=== PATIENT | female | born 1940 | race Caucasian/White ===

== ENCOUNTER 2018-01-22 02:02 | Emergency (ER) | payer MEDICARE, SELFPAY ==
[2018-01-22 02:12] VITALS: BP 175/73; PULSE 51; RESP 14; TEMP 36.7; O2SAT 96; BMI 71.9
--- NOTE | 2018-01-22 02:18 | ED.LOWEXIN ---
HPI - Extremity Injury (Lower) General Chief Complaint: Extremity Injury, Lower Stated Complaint: WOUND ON RIGHT LEG WONT STOP BLEEDING Time Seen by Provider: 01/22/18 02:18 Source: patient and RN notes reviewed Mode of arrival: wheelchair Limitations: no limitations History of Present Illness HPI Narrative: Patient is a 77-year-old female who presents with right leg of bleeding. She has varicose veins and extremely superficial veins. She scratched her leg and started bleeding. His was bleeding quite a bit. Her put a pressure dressing on it and they came immediately here. The bleeding has now stopped. She has no numbness or tingling. Onset (ago): hour(s) Related Data Home Medications Medication Instructions Recorded Confirmed losartan 25 mg OR BID #0 06/13/16 metformin [Glucophage XR] 750 mg OR BID #0 06/13/16 metoprolol succinate 100 mg OR BID #0 06/13/16 omeprazole magnesium [Prilosec OTC] #0 06/13/16 rosuvastatin [Crestor] 10 mg OR QDAY #0 06/13/16 sertraline 50 mg OR BID #0 06/13/16 Allergies Allergy/AdvReac Type Severity Reaction Status Date / Time amoxicillin [AMOXICILLIN] Allergy Severe Rash Verified 01/22/18 02:20 lactose [LACTOSE] AdvReac Severe Vomiting Verified 01/22/18 02:20 Sulfa (Sulfonamide AdvReac Intermediate Rash Verified 01/22/18 02:20 Antibiotics) [SULFA (SULFONAMIDE ANTIBIOTICS)] Review of Systems Review of Systems GENERAL: Denies chills,fever HEENT: Denies throat pain RESPIRATORY: Denies dyspnea, cough, wheezing CARDIOVASCULAR: Denies chest pain, palpitations GASTROINTESTINAL: Denies nausea, vomiting MUSCULOSKELETAL: Denies extremity pain, injury SKIN: See HPI NEUROLOGIC: Denies weakness, dizziness, headache, numbness 8 point review of systems is negative except for those stated above and HPI [facility] Social History Smoking Status: Never smoker Exam Narrative Exam Narrative: GENERAL: Well-appearing, well-nourished and in no acute distress. CARDIOVASCULAR: peripheral pulses in tact, cap refill <2 sec RESPIRATORY: No respiratory distress, speaks in full sentences without difficulty EXTREMITIES: Normal range of motion, no clubbing or edema. Neurovascularly intact NEUROLOGICAL: Cranial nerves II through XII grossly intact. Normal gait and speech. SKIN: Very small superficial area where the bleeding was occurring has now stopped. Course Last Vital Signs Temp 98.0 F 01/22/18 02:12 Pulse 51 L 01/22/18 02:12 Resp 14 01/22/18 02:12 BP 175/73 H 01/22/18 02:12 Pulse Ox 96 01/22/18 02:12 Discharge Plan Departure Patient Disposition: Home, Self-Care Clinical Impression: Varicose veins of right lower extremity Discharge Date/Time: 01/22/18 02:45 Interventions: ED Discharge Assessment Last Done: 01/22/18 02:45 Instructions: Varicose Veins Activity Restrictions/Additional Instructions: *You have been diagnosed with varicose vein *What to do: Keep dressing on until morning may need to keep it covered for the next couple of days *Take medications as directed *Follow up with your primary care provider in 2-3 days *Return to ER if you should have any new, worsening or concerning symptoms Prescriptions: No Action metoprolol succinate 100 MG tablet extended release 24 hr 100 mg OR BID Qty: 0 RF: 0 losartan 25 MG tablet 25 mg OR BID Qty: 0 RF: 0 sertraline 50 MG tablet 50 mg OR BID Qty: 0 RF: 0 rosuvastatin [Crestor] 10 MG tablet 10 mg OR QDAY Qty: 0 RF: 0 metformin [Glucophage XR] 750 MG tablet extended release 24 hr 750 mg OR BID Qty: 0 RF: 0 omeprazole magnesium [Prilosec OTC] 20 mg Tablet,Delayed Release (Dr/Ec) Qty: 0 RF: 0
== END 2018-01-22 02:45 | disposition home or self-care (01) ==
PROVIDERS: Emergency Provider Emergency Medicine; PCP Physician Assistant
DX: I83.91 Asymptomatic varicose veins of right lower extremity (principal)
CPT/HCPCS: 99282

== ENCOUNTER → 2018-07-23 13:05 | Outpatient (CLI) | payer MEDICARE, SELFPAY | PROVIDERS: PCP Physician Assistant; Visit Provider Physician Assistant | DX: Z78.0 Asymptomatic menopausal state (principal); R29.890 Loss of height | CPT/HCPCS: 77080 ==

== ENCOUNTER → 2019-07-20 10:00 | Outpatient (CLI) | payer MEDICARE, SELFPAY ==
[2019-07-20 10:36] LABS: BUN Creatinine Ratio 34.3 (6-22); Blood Urea Nitrogen 24 mg/dL (7-17); Estimated Glomerular Filt Rate > 60.0 mL/min (>60)
--- NOTE | 2019-07-20 11:13 | DI.CT.S_ITS ---
PROCEDURE: CT ABDOMEN PELVIS W CON INDICATIONS: Right upper quadrant pain TECHNIQUE: After the administration of oral and intravenous contrast, 5 mm thick sections acquired from the diaphragms to the symphysis. 5 mm thick coronal and sagittal reformats were performed. For radiation dose reduction, the following was used: automated exposure control, adjustment of mA and/or kV according to patient size. COMPARISON: [facility], [place], PELVIC COMPLETE, 08/17/2017, 8:12. [facility], [place], ABDOMEN COMPLETE, 08/17/2017, 7:55. [facility], CT, PELVIS WITHOUT CONTRAST, 05/09/2015, 12:13. [facility], CR, PELVIS WITH BILATERAL HIPS, 04/20/2015, 11:16. FINDINGS: Image quality: Excellent. ABDOMEN: Lung bases: Lung bases are clear. Heart size is normal. Solid organs: Liver is normal in size and enhancement. Gallbladder demonstrates a small phrygian cap but no pericholecystic inflammatory findings or cholelithiasis is identified. Biliary system is non-dilated. Pancreas enhances normally. There is an approximately 1.0 cm hypoattenuating cyst or hemangioma within the posterior medial aspect of the spleen. Spleen is otherwise normal in size and enhancement. No adrenal nodules. Kidneys are normal in size and enhancement, without hydronephrosis. Peritoneum, mesentery, retroperitoneum, and bowel: There is a large hiatal hernia with mesentero-axila rotation of the stomach within the hernia sac. The gastroesophageal junction projects below the level of the herniated gastric fundus and superior gastric body, but the gastric antrum remains within the stomach. There is a small volume of free fluid adjacent gastroesophageal junction within the hernia sac. There is no CT evidence of bowel obstruction at this time, however. No retroperitoneal or mesenteric adenopathy. Aorta and inferior vena cava are normal in caliber. There is severe calcified and noncalcified plaque of the abdominal aorta and branch vessels. Normal appendix best seen on axial image 51 of series 2. There is sigmoid colon diverticulosis without evidence of acute diverticulitis. Miscellaneous: There is a small 1.0 cm fat containing umbilical hernia. PELVIS: Genitourinary: Bladder wall thickness is normal. Miscellaneous: No inguinal hernias or adenopathy. Uterus is present. There are dense calcifications within the right anterolateral uterine wall near in the right adnexa, suggestive of calcified fibroids. Bones: Moderate multilevel degenerative changes of the thoracolumbar spine. IMPRESSION: 1. 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 A small amount of free fluid is identified adjacent the gastroesophageal junction within the hiatal hernia, concerning for acute inflammation and potential developing gastric volvulus. Recommend surgical consult for further evaluation. 2. Colonic diverticulosis without evidence of acute diverticulitis. 3. Severe calcified and noncalcified plaque of the abdominal aorta and branch vessels. Findings discussed with provider MK Trevizo, provider covering for referring provider Dr. Bethany Aguila, at approximately 3:10 PM on 07/20/[address] Hogan. Dictated by: Armando Hogan M.D. on 07/20/2019 at 14:36 Approved by: Armando Hogan M.D. on 07/20/2019 at 15:13
== END ==
PROVIDERS: PCP Physician Assistant; Visit Provider Internal Medicine
DX: R10.11 Right upper quadrant pain (principal); K57.30 Diverticulosis of large intestine without perforation or abscess without bleeding; K31.89 Other diseases of stomach and duodenum; I70.0 Atherosclerosis of aorta; K44.9 Diaphragmatic hernia without obstruction or gangrene
CPT/HCPCS: 36415; 74177; 82565; 84520; Q9967

== ENCOUNTER → 2019-07-29 09:53 | Outpatient (CLI) | payer MEDICARE, SELFPAY ==
--- NOTE | 2019-07-29 09:55 | DI.RAD.S_ITS ---
PROCEDURE: FL BARIUM SWALLOW INDICATIONS: large hiatal hernia. Define anatomy. examine motility COMPARISON: None. FINDINGS: Function: There is grossly normal esophageal peristalsis. No elicited gastroesophageal reflux. There is normal transit of a calibrated barium tablet through the esophagus into the stomach. Morphology: Air-contrast images demonstrate normal mucosal morphology. Single contrast views show no esophageal strictures, extrinsic mass effects, or diverticula. Moderate hiatal hernia. IMPRESSION: Moderate hiatal hernia Dictated by: Ricardo Ryan M.D. on 07/29/2019 at 11:29 Approved by: Ricardo Ryan M.D. on 07/29/2019 at 11:31
== END ==
PROVIDERS: PCP Internal Medicine; Visit Provider Specialist
DX: K44.9 Diaphragmatic hernia without obstruction or gangrene (principal); K31.89 Other diseases of stomach and duodenum
CPT/HCPCS: 74220

== ENCOUNTER 2019-08-10 06:31 | Day surgery (SDC) | payer MEDICARE, SELFPAY ==
[2019-08-10] VITALS (11 sets, daily range): BP systolic 80–166; BP diastolic 38–78; PULSE 57–86; RESP 7–16; TEMP 36.2–36.8; O2SAT 95–98; BMI 31.4
--- NOTE | 2019-08-10 | PATH_ITS ---
[facility] Accession Number: [id number] . 01 Material submitted: . duodenum - DUODENAL NODULE . 02 Diagnosis: Duodenal Nodule, Biopsy: Gastric heterotopia. Negative for active inflammation, features of sprue, dysplasia or malignancy. MRV 08/12/2019 1454 Local . 02 Electronically signed: . Cristino Smith MD, PhD, Pathologist NPI- [id number] . 01 Gross description: . DUODENAL NODULE: Received in formalin is 1 fragment(s) of valenzuela, soft tissue measuring 0.2 x 0.2 x 0.1 cm submitted entirely in 1 cassette(s) /QBJ 08/11/2019 0033 Local . 02 Pathologist provided ICD-10: K31.7 . 02 CPT . 725520 Performed at: 01 [facility] [address] [id number] MD Tejas Hightower MD Phone: [phone] Performed at: 02 [facility] [address] [address] [place], [place] [id number] MD Prema Desai MD Phone: [phone]
[2019-08-10] MEDS: fentaNYL 250 MCG/5 ML INJ IV (07:51)
[2019-08-10] MEDS: MIDAZOLAM 5 MG/5 ML VIAL IV (07:52)
[2019-08-10] MEDS: LIDOCAINE 4% SOLN 50 ML 20 ML TOP (07:53)
--- NOTE | 2019-08-10 07:58 | PM.PREOP ---
Pre-operative Note Interval Note History & Physical reviewed/Exam performed by Physician: Yes Changes to H&P: No ASA Class (for procedural sedation): III
[2019-08-10] MEDS: SODIUM CHLORIDE 0.9% 1,000 ML 84 ML IV (07:59)
--- NOTE | 2019-08-10 08:14 | SUR.OPER ---
GLASSES TO PACU IN LABELED CONTAINER
--- NOTE | 2019-08-10 08:16 | PM.OP.ENDO ---
Operative Date/Time/Diagnoses Date of procedure: 08/10/19 Time of procedure: 08:16 Pre-op diagnosis: Anemia Post-op diagnosis: same (Hiatal hernia. Small nodule in the duodenum) Procedure & Clinicians Study performed: EGD with cold biopsy Same procedure as scheduled: Yes Indications: Anemia Surgeon: Michael Bingham Procedure Notes SCOAP/Timeout: Performed Procedure in detail: The patient had topical anesthetic applied to oropharynx. She was placed in left lateral decubitus position and underwent IV sedation directed by the surgeon consisting of fentanyl and Versed. A bite block was inserted and the scope was advanced through it into the esophagus. The esophagus was unremarkable. GE junction was noted at 36 cm. There was mild narrowing here but not enough to dilate and the patient was having no symptoms. I dropped into an obvious hiatal hernia. The stomach insufflated well. There were no lesions seen in the body, antrum or at the incisura. The pyloric channel was patent though it appeared a little swollen. There was a small nodule just inside the pylorus and the duodenal bulb which was biopsied on the way out. The duodenum was otherwise unremarkable to the 4th part. The scope was brought back into the stomach and retroflexed. The proximal stomach was remarkable for large hiatal hernia. I could see no inflammation or ulcers.. The scope was straightened and brought out through the esophagus again. The hiatal hernia at the time of scope measured 3 cm in length. No lesions were seen. The scope was removed and the patient tolerated the procedure well. There was no evidence on this exam of a paraesophageal hernia. Scope withdrawal time: Not applicable Sedation minutes: 7 Findings: hiatal hernia Specimen(s): other (Small duodenal bulb nodule) Complications: none Post-procedure Plan for aftercare: Will review studies with her in the office Follow up: weeks (2) Disposition: PACU
== END 2019-08-10 09:38 | disposition home or self-care (01) ==
PROVIDERS: PCP Internal Medicine; Visit Provider Specialist
PROC: 0DJ08ZZ Inspection of Upper Intestinal Tract, Via Natural or Artificial Opening Endoscopic (ICD-10-PCS; CPT 43235; principal; 2019-08-10 07:45)
DX: K31.7 Polyp of stomach and duodenum (principal); D64.9 Anemia, unspecified; K44.9 Diaphragmatic hernia without obstruction or gangrene; H50.40 Unspecified heterotropia
CPT/HCPCS: 43239; 99152; J2250; J3010

== ENCOUNTER 2019-08-20 19:54 | Emergency (ER) | payer MEDICARE, SELFPAY ==
[2019-08-20 20:00] VITALS: BP 161/71; PULSE 80; RESP 18; O2SAT 98
[2019-08-20 20:12] VITALS: BP 149/64; BP 159/85; BP 167/61; PULSE 90; PULSE 92; PULSE 94
[2019-08-20 20:13] VITALS: BP 167/60; PULSE 93; RESP 20; O2SAT 100
--- NOTE | 2019-08-20 20:49 | PC.NURSE ---
Pt states that she believes her blood pressure cuff is to big and will give 'wrong' bp. Discussed size of cuff, had tried regular size (pt is on the line between regular size cuff and large cuff) and pt would not let us use regular size cuff. She states she does not want her health care determined by the numbers we are getting. Discussed trends and how blood pressures change according to need. Pt anxious for MD evaluation, updated on wait as critical patients in Ed.
[2019-08-20 21:06] LABS: INR 1.1 (0.9-1.3); Prothrombin Time 12.2 SECONDS (10.1-12.7)
--- NOTE | 2019-08-20 21:07 | DI.RAD.S_ITS ---
PROCEDURE: XR CHEST 1V INDICATIONS: lightheadedness, low blood pressure TECHNIQUE: One view of the chest was acquired. COMPARISON: None. FINDINGS: Surgical changes and devices: None. Lungs and pleura: Lungs are clear. No pleural effusions or pneumothorax. Mediastinum: Mediastinal contours appear normal. Heart size is normal. Bones and chest wall: No suspicious bony lesions. Overlying soft tissues appear unremarkable. IMPRESSION: No acute cardiopulmonary disease. Dictated by: Daniel Bhat M.D. on 08/20/2019 at 21:54 Approved by: Daniel Bhat M.D. on 08/20/2019 at 21:54
[2019-08-20 21:09] LABS: PTT Partial Thromboplastin Tim 27 SECONDS (26.4-36.2)
[2019-08-20 21:11] LABS: Alanine Aminotransferase 17 IU/L (<35); Albumin 4.2 g/dL (3.5-5.0); Albumin Globulin Ratio 1.4 (1.0-2.8); Alkaline Phosphatase 69 U/L (38-126); Aspartate Aminotransferase 25 IU/L (14-36); Bilirubin Total 0.5 mg/dL (0.2-1.3); Blood Urea Nitrogen 36 mg/dL (7-17); Carbon Dioxide 27 mmol/L (22-32); Chloride 102 mmol/L (98-107); Creatine Kinase 30 U/L (30-135); Estimated Glomerular Filt Rate 53.6 mL/min (>60); Glucose 101 mg/dL (80-110); HEMOLYSIS < 15 (0-50); Lipase 58 U/L (23-300); Sodium 137 mmol/L (137-145); Total Protein 7.2 g/dL (6.3-8.2)
--- NOTE | 2019-08-20 21:11 | ED.RECABL ---
HPI - Recheck/Abnormal Lab/Rx General Chief Complaint: Recheck/Abnormal Lab/Rx Stated Complaint: lightheadedness, low blood pressure Time Seen by Provider: 08/20/19 21:07 Source: patient Mode of arrival: Ambulatory Limitations: no limitations History of Present Illness HPI narrative: A 78-year-old female comes to the emergency department with complaint of lightheadedness. Patient states that she felt lightheaded several times while standing up today is always when she went from a sitting to standing position. It was not every single time. She would checked her blood pressure with her cough and states that it went occasionally low. But not always. She states that she is having symptoms currently. She denies any syncope. No chest pain, no shortness of breath, no diaphoresis, no GERD, no nausea vomiting. Patient a little bit of loose stools this evening but states she had better tonight and she is lactose intolerant. Patient states her stools have been dark, she has denied any swelling. She is postop hiatal hernia repair based on possibly some bleeding around the area of the hernia but states that this has never been in [place]. Any he takes nothing for diabetes, hypertension, dyslipidemia and migraines. Primary care is Dr. Aguila. Related Data Home Medications Medication Instructions Recorded Confirmed losartan 25 mg PO BID #0 06/13/16 08/10/19 metformin [Glucophage XR] 750 mg PO DAILY #0 06/13/16 08/10/19 metoprolol succinate 50 mg PO BID #0 06/13/16 08/10/19 rosuvastatin [Crestor] 10 mg PO QDAY #0 06/13/16 08/10/19 sertraline 50 mg PO BID #0 06/13/16 08/10/19 pantoprazole 20 mg PO DAILY 08/10/19 08/10/19 Allergies Allergy/AdvReac Type Severity Reaction Status Date / Time amoxicillin [AMOXICILLIN] Allergy Severe Rash Verified 08/10/19 07:07 lactose [LACTOSE] AdvReac Severe Vomiting Verified 08/10/19 07:07 Sulfa (Sulfonamide AdvReac Intermediate Rash Verified 08/10/19 07:07 Antibiotics) [SULFA (SULFONAMIDE ANTIBIOTICS)] Review of Systems Review of Systems ROS Unobtainable: All systems reviewed & are unremarkable except as noted in HPI and below Patient History Medical History Egg allergy (Acute) Prediabetes (Acute) Surgical History Hx of cataract surgery (Acute) Family History Mother Hypertension Heart disease Stroke Sister Diabetes mellitus Social History marital status: household members: spouse occupational status: previously employed Smoking Status: Never smoker alcohol intake: never substance use type: does not use Smoking Status: Never smoker alcohol intake frequency: 0-2 drinks per day Substance Use Type: does not use Exam Narrative Exam Narrative: GEN: well nourished, well appearing female, alert and oriented x 3, patient appears to be in no acute distress. HEENT: Atraumatic, pupils are equal round reactive to light, extraocular movements are intact, nares are clear, TMs are clear with no fluid, there is no conjunctival pallor. Throat is clear without any exudates, erythema, tonsillar enlargement or uvular deviation HEART: Regular rate and rhythm without murmur, clicks, rubs. Pulses are equal in upper and lower extremities LUNGS:Lungs clear to auscultation, no wheezes, rales, crackles, chest moves symmetrically ABD:bowel sounds normal, soft, non-tender, no guarding, rebound, rigidity, no masses noted, no hepatosplenomegaly, stool occult is positive. No mass. No hemorrhoids noted. :No CVA tenderness. MSCL: Non-tender, no muscle atrophy, muscles strength 5/5 upper and lower extremities, full range of motion, normal gait NEURO:CN 2-12 intact, sensation normal. SKIN: No rash, no petechiae. Initial Vital Signs Initial Vital Signs: Vital Signs Pulse Rate 80 08/20/19 20:00 Respiratory Rate 18 08/20/19 20:00 Blood Pressure 161/71 H 08/20/19 20:00 Pulse Oximetry 98 08/20/19 20:00 Course Orders Ordered: ED Orders 08/20/19 20:50 Complete Blood Count AUTO DIFF Stat Comprehensive Metabolic Panel Stat Lipase Stat Partial Thromboplastin Time Stat Prothrombin Time INR Stat Troponin & CK Cardiac Panel Stat 08/20/19 21:07 XR chest 1V Stat Vital Signs Vital signs: Vital Signs - 8 hr 08/20/19 22:00 08/20/19 22:57 Pulse Rate 77 89 Respiratory Rate 18 16 Blood Pressure [Left Arm] 171/61 H 162/88 H Pulse Oximetry 99 99 MDM - Recheck/Abnormal Lab/Rx Lab Data Attestation: I reviewed the patient's lab results. Result diagrams: 08/20/19 20:50 08/20/19 20:50 Labs: Lab Results 08/20/19 08/20/19 08/20/19 Range/Units 20:50 20:50 20:50 WBC 8.6 (4.5-11.0) X10^3/uL RBC 3.68 L (4.0-5.2) X10^6/uL Hgb 12.0 (12.0-16.0) g/dL Hct 35.1 L (36-46) % MCV 95.5 (80-100) fL MCH 32.7 (26-34) PG MCHC 34.3 (30-36) % RDW 12.2 (11.6-14.8) % Plt Count 273 (150-400) X10^3/uL Neut % (Auto) 59.1 (50-75) % Lymph % (Auto) 28.7 (25-40) % [place] % (Auto) 9.7 (3-14) % Eos % (Auto) 1.9 L (2-4) % Baso % (Auto) 0.6 (0-2) % Neut # (Auto) 5100 (5030-6104) /uL Lymph # (Auto) 2500 (8138-3054) /uL [place] # (Auto) 800 (0-900) /uL Eos # (Auto) 200 (0-450) /uL Baso # (Auto) 100 (0-100) /uL PT 12.2 (10.1-12.7) SECONDS INR 1.1 (0.9-1.3) APTT 27 (26.4-36.2) SECONDS Sodium 137 (137-145) mmol/L Potassium 4.0 (3.4-5.1) mmol/L Chloride 102 (98-107) mmol/L Carbon Dioxide 27 (22-32) mmol/L BUN 36 H (7-17) mg/dL Creatinine 1.00 (0.52-1.04) mg/dL Estimated GFR 53.6 L (>60) mL/min BUN/Creatinine Ratio 36.0 H (6-22) Glucose 101 (80-110) mg/dL Calcium 9.0 (8.4-10.2) mg/dL Total Bilirubin 0.5 (0.2-1.3) mg/dL AST 25 (14-36) IU/L ALT 17 (<35) IU/L Alkaline Phosphatase 69 (38-126) U/L Total Creatine Kinase 30 (30-135) U/L CK-MB (CK-2) TNP CK-MB (CK-2) Rel Index TNP Troponin I < 0.012 (0.01-0.034) ng/mL Total Protein 7.2 (6.3-8.2) g/dL Albumin 4.2 (3.5-5.0) g/dL Globulin 3.0 (1.7-4.1) g/dL Albumin/Globulin Ratio 1.4 (1.0-2.8) Lipase 58 (23-300) U/L Imaging Data Chest x-ray: Radiologist's impression: Laotnia Chanel 78 [address] [place] [address] XRay Report Signed Patient: Latoina Chanel BMR#: [id number] : [id number]:[id number] Age/Sex: 78 / FDate of Service: 08/20/19 Loc: ED Accession Number: [id number] Procedure: XR chest 1V Ordering Provider: Bonnie Hagan D.O. PROCEDURE: XR CHEST 1V INDICATIONS: lightheadedness, low blood pressure TECHNIQUE: One view of the chest was acquired. COMPARISON: None. FINDINGS: Surgical changes and devices: None. Lungs and pleura: Lungs are clear. No pleural effusions or pneumothorax. Mediastinum: Mediastinal contours appear normal. Heart size is normal. Bones and chest wall: No suspicious bony lesions. Overlying soft tissues appear unremarkable. IMPRESSION: No acute cardiopulmonary disease. Dictated by: Daniel Bhat M.D. on 08/20/2019 at 21:54 Approved by: Daniel Bhat M.D. on 08/20/2019 at 21:54 ECG Data Attestation: I personally reviewed and interpreted this ECG as follows: Interpretation: Sinus rhythm rate 89 P are 177 QRS is 74 and QTC of 418. No move ST elevation depression appreciated. MDM Narrative Medical decision making narrative: Discussed with patient she comes in with complaint of hypotension which always occurred when she stood up he from a seated position. But not every time and she did occasionally have dizziness but not every time. Patient does have a history of hiatal hernia with a possible ulcer and is scheduled to have surgery with Dr. Bingham later this month. Patient is not currently on any aspirin she is taking a pantoprazole extended release. Hemoglobin appears stable. The department she has no episodes of hypotension and orthostatics are negative. BUN is elevated at 36, troponin is negative with otherwise normal labs, chest x-ray is negative with negative EKG. Discussed with patient she feels comfortable returning home I do suspect she has a GI bleed she states she has chronically been on iron for a long period of time and always is low normal with her hemoglobin. I asked her to call Thursday to speak with Dr. Bingham's office to see if they would like to see her sooner or even possibly have colonoscopy/EGD based on her issues. Patient feels comfortable as plan and we discussed reasons to return. Discharge Plan Departure Patient Disposition: Home Clinical Impression: Dizziness Discharge Date/Time: 08/20/19 23:03 Instructions: DI for Dizziness-Nonvertigo Activity Restrictions/Additional Instructions: Follow up with Dr. Bingham this week regarding your positive Hemoccult. See if during discussion if they can move your surgery up sooner. Continue your pantoprazole take 40 mg daily. Return to the emergency department for recurrent symptoms, worsening dizziness, passing out, any chest pain, shortness of breath, abdominal pain, worsening black or bloody stools, or other new or concerning symptoms. Prescriptions: No Action metoprolol succinate 100 MG tablet extended release 24 hr 50 mg PO BID Qty: 0 RF: 0 losartan 25 MG tablet 25 mg PO BID Qty: 0 RF: 0 sertraline 50 MG tablet 50 mg PO BID Qty: 0 RF: 0 rosuvastatin [Crestor] 10 MG tablet 10 mg PO QDAY Qty: 0 RF: 0 metformin [Glucophage XR] 750 MG tablet extended release 24 hr 750 mg PO DAILY Qty: 0 RF: 0 pantoprazole 20 mg tablet,delayed release (DR/EC) 20 mg PO DAILY RF: 0 Referrals: Bethany Aguila MD [Primary Care Provider] -
[2019-08-20 21:12] LABS: Add Manual Diff / Slide Review NO; Basophils Absolute Auto 100 /uL (0-100); Basophils Percent Auto 0.6 % (0-2); Eosinophils Absolute Auto 200 /uL (0-450); Eosinophils Percent Auto 1.9 % (2-4); Hematocrit 35.1 % (36-46); Lymphocytes Absolute Auto 2500 /uL (1100-4500); Lymphocytes Percent Auto 28.7 % (25-40); Mean Corpuscular HGB Conc 34.3 % (30-36); Mean Corpuscular Hemoglobin 32.7 PG (26-34); Mean Corpuscular Volume 95.5 fL (80-100); Monocytes Absolute Auto 800 /uL (0-900); Monocytes Percent Auto 9.7 % (3-14); Neutrophils Absolute Auto 5100 /uL (1500-7000); Neutrophils Percent Auto 59.1 % (50-75); Platelet Count 273 X10^3/uL (150-400); Red Blood Cell Count 3.68 X10^6/uL (4.0-5.2); Red Cell Distribution Width 12.2 % (11.6-14.8); White Blood Cell Count 8.6 X10^3/uL (4.5-11.0)
[2019-08-20 21:19] VITALS: BP 150/59; PULSE 83; RESP 22; O2SAT 100
[2019-08-20 21:23] LABS: Troponin I < 0.012 ng/mL (0.01-0.034)
[2019-08-20 22:00] VITALS: BP 171/61; PULSE 77; RESP 18; O2SAT 99
[2019-08-20 22:57] VITALS: BP 162/88; PULSE 89; RESP 16; O2SAT 99
== END 2019-08-20 23:03 | disposition home or self-care (01) ==
PROVIDERS: Emergency Provider Emergency Medicine; PCP Internal Medicine
DX: R42 Dizziness and giddiness (principal); I95.9 Hypotension, unspecified; R79.89 Other specified abnormal findings of blood chemistry
CPT/HCPCS: 36415; 71045; 80053; 82550; 83690; 84484; 85025; 85610; 85730; 93005; 99283; 99285

== ENCOUNTER → 2019-10-04 12:26 | Outpatient (ROUT) | payer OTHER, SELFPAY ==
[2019-10-04 12:38] LABS: Add Manual Diff / Slide Review NO; Basophils Absolute Auto 0 /uL (0-100); Basophils Percent Auto 0.7 % (0-2); Eosinophils Absolute Auto 400 /uL (0-450); Eosinophils Percent Auto 6.3 % (2-4); Hemoglobin 13.5 g/dL (12.0-16.0); Lymphocytes Absolute Auto 1800 /uL (1100-4500); Lymphocytes Percent Auto 26.6 % (25-40); Mean Corpuscular HGB Conc 34.5 % (30-36); Mean Corpuscular Hemoglobin 33.2 PG (26-34); Mean Corpuscular Volume 96.1 fL (80-100); Monocytes Absolute Auto 600 /uL (0-900); Monocytes Percent Auto 9.2 % (3-14); Neutrophils Absolute Auto 3900 /uL (1500-7000); Neutrophils Percent Auto 57.2 % (50-75); Platelet Count 284 X10^3/uL (150-400); Red Blood Cell Count 4.06 X10^6/uL (4.0-5.2); Red Cell Distribution Width 13.1 % (11.6-14.8); White Blood Cell Count 6.9 X10^3/uL (4.5-11.0)
[2019-10-04 12:52] LABS: Alanine Aminotransferase 15 IU/L (<35); Albumin 4.1 g/dL (3.5-5.0); Albumin Globulin Ratio 1.3 (1.0-2.8); Alkaline Phosphatase 75 U/L (38-126); Aspartate Aminotransferase 26 IU/L (14-36); BUN Creatinine Ratio 33.3 (6-22); Bilirubin Total 0.5 mg/dL (0.2-1.3); Blood Urea Nitrogen 20 mg/dL (7-17); Calcium 9.2 mg/dL (8.4-10.2); Carbon Dioxide 28 mmol/L (22-32); Chloride 104 mmol/L (98-107); Cholesterol 154 mg/dL (140-199); Estimated Glomerular Filt Rate > 60.0 mL/min (>60); Globulin 3.1 g/dL (1.7-4.1); Glucose 116 mg/dL (80-110); HDL Cholesterol 51 mg/dL (40-60); HEMOLYSIS < 15 (0-50); LDL Cholesterol Calculated 74 mg/dL (<100); Potassium 4.2 mmol/L (3.4-5.1); Sodium 140 mmol/L (137-145); Total Protein 7.2 g/dL (6.3-8.2); Triglycerides 144 mg/dL (35-150)
[2019-10-04 12:53] LABS: Hemoglobin A1C% w Est Avg Glu 5.4 % (4.0-6.0)
[2019-10-04 12:56] LABS: High Sensitivity CRP - Cardiac 0.8 mg/L (1.0-3.0)
[2019-10-04 13:22] LABS: TSH w/ Reflex to FT4 2.06 uIU/mL (0.47-4.68)
[2019-10-04 14:50] LABS: Creatinine Urine Random 157.4 mg/dL
[2019-10-04 14:52] LABS: Microalbumi Creatinin Ratio Ur 9.5 ug/mg CR (<30); Microalbumin Urine Random 1.5 mg/dL (0-1.6)
[2019-10-06 15:06] LABS: Insulin Level Total 10.2 uIU/mL (2.0-19.6)
== END ==
PROVIDERS: PCP Internal Medicine; Visit Provider Internal Medicine
DX: E11.9 Type 2 diabetes mellitus without complications (principal); I10 Essential (primary) hypertension; E78.2 Mixed hyperlipidemia; R53.83 Other fatigue; R07.9 Chest pain, unspecified; Z82.49 Family history of ischemic heart disease and other diseases of the circulatory system
CPT/HCPCS: 80053; 80061; 82043; 82570; 83036; 83525; 84443; 85025; 86140

== ENCOUNTER → 2019-10-21 08:27 | Outpatient (CLI) | payer MEDICARE, SELFPAY ==
[2019-10-21] MEDS: METOPROLOL IR 25 MG TABLET 50 MG PO (09:30)
--- NOTE | 2019-10-24 18:39 | DI.NM.S_ITS ---
DATE OF SERVICE: 10/21/2019 PROCEDURE: Pharmacological perfusion study. INDICATION: Near syncope, lightheadedness, underlying diabetes mellitus, hypertension, hyperlipidemia. RADIOPHARMACEUTICAL: 24.9 millicurie technetium-99m Myoview IV was injected at stress and 24.8 millicurie technetium-99m Myoview IV was injected at rest. FINDINGS: CARDIAC STRESS:: The patient underwent intravenous Lexiscan perfusion study under the supervision of an attending staff using standard IV Lexiscan protocol. Baseline blood pressure 148/80. During Lexiscan infusion, she became hypertensive. Her blood pressure went up to 280/80, which lasted about 10 minutes. The patient was given metoprolol tartrate 50 mg. Then, blood pressure came down to 180/76. No chest pain or nausea. Heart rate remained stable. Rhythm was sinus. No convincing ischemic changes. Occasional PVCs were seen. RAW DATA:: Breast shadow was seen. GATED STUDY:: Stress LV ejection fraction 89 percent and resting LV ejection fraction 87 percent. No obvious wall motion abnormalities. Resting end- diastolic volume 75 mL. Lung-heart ratio 0.32, which is within normal limits. No transient ischemic dilatation. TID ratio 1.13, which is within normal limits. MYOCARDIAL PERFUSION:: There was normal myocardial perfusion. CONCLUSIONS: 1. Normal myocardial perfusion. 2. Hypertensive blood pressure response to Lexiscan. No significant arrhythmias. No chest pain. 3. As far as perfusion scan is concerned, this is a low risk myocardial perfusion scan. 4. Consider optimization of blood pressure management. Latonia Chanel - Reilly/sabi doc#: [id number]/job#: [id number] dd: 10/24/2019 17:11:00 dt: 10/24/2019 18:25:00 DICTATING MD/COPIES TO: Yennifer Buchanan MD COPIES MNE: FREDY;
== END ==
PROVIDERS: PCP Internal Medicine; Referring Provider Internal Medicine; Visit Provider Internal Medicine
DX: R07.9 Chest pain, unspecified (principal); R55 Syncope and collapse; R42 Dizziness and giddiness; R53.83 Other fatigue; E11.9 Type 2 diabetes mellitus without complications; I10 Essential (primary) hypertension; E78.5 Hyperlipidemia, unspecified; Z82.49 Family history of ischemic heart disease and other diseases of the circulatory system
CPT/HCPCS: 78452; 93017; A9502; J2785

== ENCOUNTER → 2020-02-24 10:13 | Outpatient (CLI) | payer MEDICARE, SELFPAY ==
[2020-02-24 11:57] LABS: Hemoglobin A1C% w Est Avg Glu 5.8 % (4.0-6.0)
[2020-02-24 11:59] LABS: Add Manual Diff / Slide Review NO; Basophils Absolute Auto 0 /uL (0-100); Basophils Percent Auto 0.4 % (0-2); Eosinophils Absolute Auto 300 /uL (0-450); Eosinophils Percent Auto 3.8 % (2-4); Hematocrit 37.7 % (36-46); Lymphocytes Absolute Auto 1700 /uL (1100-4500); Lymphocytes Percent Auto 22.1 % (25-40); Mean Corpuscular HGB Conc 34.5 % (30-36); Mean Corpuscular Hemoglobin 33.4 PG (26-34); Monocytes Absolute Auto 600 /uL (0-900); Monocytes Percent Auto 8.2 % (3-14); Neutrophils Absolute Auto 5000 /uL (1500-7000); Neutrophils Percent Auto 65.5 % (50-75); Platelet Count 333 X10^3/uL (150-400); Red Blood Cell Count 3.88 X10^6/uL (4.0-5.2); Red Cell Distribution Width 12.2 % (11.6-14.8); White Blood Cell Count 7.7 X10^3/uL (4.5-11.0)
[2020-02-24 12:00] LABS: Alanine Aminotransferase 14 IU/L (<35); Albumin 4.2 g/dL (3.5-5.0); Albumin Globulin Ratio 1.3 (1.0-2.8); Alkaline Phosphatase 80 U/L (38-126); Aspartate Aminotransferase 28 IU/L (14-36); BUN Creatinine Ratio 29.2 (6-22); Bilirubin Total 0.6 mg/dL (0.2-1.3); Blood Urea Nitrogen 19 mg/dL (7-17); Calcium 9.3 mg/dL (8.4-10.2); Carbon Dioxide 29 mmol/L (22-32); Chloride 100 mmol/L (98-107); Cholesterol 180 mg/dL (140-199); Estimated Glomerular Filt Rate > 60.0 mL/min (>60); Globulin 3.3 g/dL (1.7-4.1); Glucose 114 mg/dL (80-110); HDL Cholesterol 57 mg/dL (40-60); HEMOLYSIS < 15 (0-50); LDL Cholesterol Calculated 94 mg/dL (<100); Sodium 137 mmol/L (137-145); Total Protein 7.5 g/dL (6.3-8.2); Triglycerides 143 mg/dL (35-150)
[2020-02-24 12:37] LABS: Ferritin 51 ng/mL (11-264)
== END ==
PROVIDERS: PCP Internal Medicine; Referring Provider Internal Medicine; Visit Provider Internal Medicine
DX: R73.9 Hyperglycemia, unspecified (principal); E78.5 Hyperlipidemia, unspecified; D50.9 Iron deficiency anemia, unspecified
CPT/HCPCS: 36415; 80053; 80061; 82728; 83036; 85025

== ENCOUNTER → 2020-06-27 19:02 | Outpatient (ROUT) | payer MEDICARE, SELFPAY ==
[2020-06-27 19:34] LABS: Add Manual Diff / Slide Review NO; Basophils Absolute Auto 0 /uL (0-100); Basophils Percent Auto 0.5 % (0-2); Eosinophils Absolute Auto 200 /uL (0-450); Eosinophils Percent Auto 2.1 % (2-4); Hemoglobin 13.3 g/dL (12.0-16.0); Lymphocytes Absolute Auto 1700 /uL (1100-4500); Lymphocytes Percent Auto 18.6 % (25-40); Mean Corpuscular HGB Conc 34.2 % (30-36); Mean Corpuscular Hemoglobin 32.9 PG (26-34); Mean Corpuscular Volume 96.2 fL (80-100); Monocytes Absolute Auto 600 /uL (0-900); Monocytes Percent Auto 7.1 % (3-14); Neutrophils Absolute Auto 6400 /uL (1500-7000); Neutrophils Percent Auto 71.7 % (50-75); Platelet Count 302 X10^3/uL (150-400); Red Blood Cell Count 4.06 X10^6/uL (4.0-5.2); Red Cell Distribution Width 12.5 % (11.6-14.8)
[2020-06-27 19:46] LABS: BUN Creatinine Ratio 30.2 (6-22); Blood Urea Nitrogen 19 mg/dL (7-17); Calcium 9.4 mg/dL (8.4-10.2); Carbon Dioxide 28 mmol/L (22-32); Chloride 101 mmol/L (98-107); Estimated Glomerular Filt Rate > 60.0 mL/min (>60); Glucose 119 mg/dL (80-110); HEMOLYSIS < 15 (0-50); Potassium 4.3 mmol/L (3.4-5.1); Sodium 137 mmol/L (137-145)
== END ==
PROVIDERS: PCP Internal Medicine; Visit Provider Internal Medicine
DX: D64.9 Anemia, unspecified (principal); I10 Essential (primary) hypertension
CPT/HCPCS: 80048; 85025